=== PATIENT | female | born 1960 | race Caucasian/White ===

== ENCOUNTER 2023-07-06 17:43 | Emergency (ER) | payer BC ==
[~2023-07-06] VITALS: Ht 157.5 cm; Wt 132.0 kg
[~2023-07-06 17:43] MED LIST: ACET-2619 PO; ALBU0.0912 IH; AMIO200T62 GT; APIX2.5 GT; ASCO500T95 GT; ATRMDI IH; CHLO473S62 PO; CLOB15CR11 TP; DIPH25TA53 GT; DOCU-299 GT; INSU100S22 SC; INSU100S5 SUBQ; LACT-103 GT; LORA-476 GT; METO25TA GT; MONT5CTB27 GT; PANT40EC GT; PUL.25N INH; ZOS2.25PM IV; [UNRECOGNIZED DRUG - CODE]; [UNRECOGNIZED DRUG - CODE] TP
[2023-07-06 17:54] VITALS: BP 115/71; PULSE 126; RESP 16; TEMP 99.4; O2SAT 96
[2023-07-06 18:01] VITALS: PULSE 113; O2SAT 100
[2023-07-06 19:05] VITALS: PULSE 120; O2SAT 99
[2023-07-06] MEDS: DILTIAZEM 25 MG/5 ML VIAL IVP ONE (20:43)
[2023-07-06 21:30] VITALS: BP 99/48; PULSE 118; RESP 18; TEMP 99.4; O2SAT 98
== END 2023-07-06 21:30 ==
LOC: MED 17:43
DX: K94.23 Gastrostomy malfunction (principal); I48.91 Unspecified atrial fibrillation; E11.9 Type 2 diabetes mellitus without complications; I12.0 Hypertensive chronic kidney disease with stage 5 chronic kidney disease or end stage renal disease; N18.6 End stage renal disease; K21.9 Gastro-esophageal reflux disease without esophagitis; Z99.2 Dependence on renal dialysis; Z79.4 Long term (current) use of insulin; Z79.899 Other long term (current) drug therapy
CPT/HCPCS: 43762; 96374; 99284; 99291; J3490

== ENCOUNTER 2023-08-27 14:04 | Inpatient (IN) | payer BC ==
[2023-08-27] VITALS (7 sets, daily range): BP systolic 161–189; BP diastolic 65–83; PULSE 58–69; RESP 18–26; TEMP 97; O2SAT 96–100
[~2023-08-27] VITALS: Ht 154.9 cm; Wt 149.3 kg
[~2023-08-27 14:04] MED LIST changes: -LACT-103 GT; +LACT-191 GT; -LORA-476 GT; -ZOS2.25PM IV; +[UNRECOGNIZED DRUG - CODE] IV
[2023-08-27 14:22] LABS: BASOPHILS # (AUTO) 0.1 K/uL (0.00-0.22); BASOPHILS % (AUTO) 0.8 % (0.0-2.0); EOSINOPHILS # (AUTO) 0.2 K/uL (0-0.4); HEMATOCRIT 34.4 % (36-48); HEMOGLOBIN 11.5 g/dL (12.0-16.0); LYMPHOCYTES # (AUTO) 2.1 K/uL (2.5-16.5); MEAN CORPUSCULAR HEMOGLOBIN 31 pg (27-31); MEAN CORPUSCULAR HGB CONC 33 g/dL (33-37); MEAN CORPUSCULAR VOLUME 91.8 fL (80-94); MONOCYTES # (AUTO) 0.9 K/uL (0.8-1.0); MONOCYTES % (AUTO) 5.3 % (1.7-9.3); NEUTROPHILS # (AUTO) 14.4 K/uL (1.8-7.7); NEUTROPHILS % (AUTO) 80.9 % (42.2-75.2); PLATELET COUNT (AUTO) 349 K/uL (140-450); RED BLOOD CELL COUNT(AUTO) 3.75 MIL/uL (4.20-5.40); RED CELL DISTRIBUTION WIDTH 18.6 % (11.6-13.7); WHITE BLOOD COUNT (AUTO) 17.8 K/uL (4.8-10.8)
[2023-08-27 14:48] LABS: ALANINE AMINOTRANSFERASE 14 U/L (12-78); ALBUMIN 1.8 g/dL (3.4-5.0); ALKALINE PHOSPHATASE 406 U/L (50-136); ASPARTATE AMINOTRANSFERASE 23 U/L (15-37); BILIRUBIN,DIRECT 1.1 mg/dL (0.0-0.3); TOTAL BILIRUBIN 1.3 mg/dL (0.0-1.0); TOTAL PROTEIN, SERUM 7.9 g/dL (6.4-8.2)
[2023-08-27 14:55] LABS: ANION GAP 15.9 (8-16); CALCIUM 9.7 mg/dL (8.5-10.1); CARBON DIOXIDE 30.5 mmol/L (21-32); CREATININE 2.3 mg/dL (0.6-1.3); POTASSIUM 3.4 mmol/L (3.5-5.1)
[2023-08-27 17:20] LABS: LACTIC ACID 1.4 mmol/L (0.4-2.0)
[2023-08-27] MEDS ORDERED: NACL 0.9% 1,000 ML IV SCH (22:35)
[2023-08-27] MEDS ORDERED: hydrALAZINE 20 MG/ML VIAL IVP PRN (22:40)
[2023-08-27] MEDS ORDERED: ALBUTEROL SULFATE/IPRATROPIU 3 ML SOL IH PRN (22:45)
[2023-08-28] VITALS (12 sets, daily range): BP systolic 123–160; BP diastolic 51–73; PULSE 50–72; RESP 18–23; TEMP 96.5–97.2; O2SAT 97–100
[2023-08-28 05:45] LABS: BASOPHILS % (AUTO) 0.3 % (0.0-2.0); EOSINOPHILS # (AUTO) 0.2 K/uL (0-0.4); EOSINOPHILS % (AUTO) 1.1 % (0.0-4.0); HEMATOCRIT 32.4 % (36-48); HEMOGLOBIN 10.6 g/dL (12.0-16.0); LYMPHOCYTES # (AUTO) 1.8 K/uL (2.5-16.5); LYMPHOCYTES % (AUTO) 10.6 % (20.5-51.1); MEAN CORPUSCULAR HEMOGLOBIN 30 pg (27-31); MEAN CORPUSCULAR HGB CONC 33 g/dL (33-37); MEAN CORPUSCULAR VOLUME 91.9 fL (80-94); MONOCYTES % (AUTO) 5.9 % (1.7-9.3); NEUTROPHILS # (AUTO) 13.7 K/uL (1.8-7.7); NEUTROPHILS % (AUTO) 82.1 % (42.2-75.2); PLATELET COUNT (AUTO) 284 K/uL (140-450); RED BLOOD CELL COUNT(AUTO) 3.52 MIL/uL (4.20-5.40); RED CELL DISTRIBUTION WIDTH 18.5 % (11.6-13.7); WHITE BLOOD COUNT (AUTO) 16.7 K/uL (4.8-10.8)
[2023-08-28 06:15] LABS: ALBUMIN 1.5 g/dL (3.4-5.0); ANION GAP 17.4 (8-16); CALCIUM 9.7 mg/dL (8.5-10.1); CARBON DIOXIDE 29.2 mmol/L (21-32); CREATININE 2.6 mg/dL (0.6-1.3); POTASSIUM 3.6 mmol/L (3.5-5.1); TOTAL BILIRUBIN 1.3 mg/dL (0.0-1.0); TOTAL PROTEIN, SERUM 6.9 g/dL (6.4-8.2)
[2023-08-28] MEDS: PANTOPRAZOLE 40 MG INJ VIAL IVP SCH (09:19)
[2023-08-28] MEDS: ACETAMINOPHEN 325 MG TAB PO SCH (09:20)
[2023-08-28] MEDS: AMIODARONE 200 MG TAB GT SCH (09:20)
[2023-08-28] MEDS: METOPROLOL 25 MG TAB GT SCH (09:21)
[2023-08-28] MEDS: APIXABAN 2.5 MG TAB GT SCH (09:23)
[2023-08-28] MEDS: ASCORBIC ACID 500 MG TAB GT SCH (09:23)
[2023-08-28 10:19] LABS: APPEARANCE,URINE CLEAR (CLEAR); BILIRUBIN,URINE NEGATIVE (NEGATIVE); BLOOD, URINE 2+ (NEGATIVE); COLOR,URINE YELLOW (YELLOW); LEUKOCYTE ESTERASE ,URINE 2+ (NEGATIVE); NITRITE, URINE NEGATIVE (NEGATIVE); PH,URINE 8.5 (5.0-9.0); PROTEIN,URINE 2+ (NEGATIVE); UGLUCOSE TRACE (NEGATIVE); UROBILINOGEN,URINE 0.2 EU/dL (0.2 - 1)
[2023-08-28 10:40] LABS: BACTERIA,URINE 10-30 (MOD) /HPF (None Seen); SQUAMOUS EPITHELIAL CELL,UR 0-3 (FEW) /LPF (0-3 (FEW))
[2023-08-28] MEDS ORDERED: VANCOMYCIN PER PHARMACY MC PRN (11:15)
[2023-08-28] MEDS ORDERED: FOAM DRESSING TP PRN (12:15)
[2023-08-28] MEDS ORDERED: NYSTATIN POW 100 MU/GM 15 GM BTL TP PRN (12:15)
[2023-08-28] MEDS ORDERED: NON ADHERENT DRESSING TP PRN (12:15)
[2023-08-28] MEDS: NYSTATIN POW 100 MU/GM 15 GM BTL TP SCH (13:00)
[2023-08-28] MEDS: PIPERACILLIN/TAZOBACTAM 2.25 GM in DEXTROSE 5% 50 ML IV SCH (13:00)
[2023-08-28] MEDS: NON ADHERENT DRESSING TP SCH (13:00)
[2023-08-28] MEDS: FOAM DRESSING TP SCH (13:00)
[2023-08-28] MEDS: VANCOMYCIN 1.25GM PREMIX 250 ML IV SCH (21:36)
[2023-08-29] VITALS (10 sets, daily range): BP systolic 110–155; BP diastolic 57–79; PULSE 70–105; RESP 16–23; TEMP 96.9–97.5; O2SAT 96–100
[2023-08-29 05:27] LABS: BASOPHILS % (AUTO) 0.3 % (0.0-2.0); EOSINOPHILS # (AUTO) 0.2 K/uL (0-0.4); EOSINOPHILS % (AUTO) 1.9 % (0.0-4.0); HEMOGLOBIN 10.4 g/dL (12.0-16.0); LYMPHOCYTES # (AUTO) 1.4 K/uL (2.5-16.5); LYMPHOCYTES % (AUTO) 13.1 % (20.5-51.1); MEAN CORPUSCULAR HEMOGLOBIN 31 pg (27-31); MEAN CORPUSCULAR HGB CONC 34 g/dL (33-37); MEAN CORPUSCULAR VOLUME 91.4 fL (80-94); MONOCYTES # (AUTO) 0.7 K/uL (0.8-1.0); MONOCYTES % (AUTO) 6.3 % (1.7-9.3); NEUTROPHILS # (AUTO) 8.6 K/uL (1.8-7.7); NEUTROPHILS % (AUTO) 78.4 % (42.2-75.2); PLATELET COUNT (AUTO) 297 K/uL (140-450); RED BLOOD CELL COUNT(AUTO) 3.39 MIL/uL (4.20-5.40); RED CELL DISTRIBUTION WIDTH 18.9 % (11.6-13.7)
[2023-08-29 05:45] LABS: ALBUMIN 1.5 g/dL (3.4-5.0); ANION GAP 17.9 (8-16); CALCIUM 9.8 mg/dL (8.5-10.1); CARBON DIOXIDE 26.9 mmol/L (21-32); CREATININE 2.3 mg/dL (0.6-1.3); POTASSIUM 3.8 mmol/L (3.5-5.1); TOTAL BILIRUBIN 1.2 mg/dL (0.0-1.0); TOTAL PROTEIN, SERUM 6.8 g/dL (6.4-8.2)
[2023-08-29] MEDS ORDERED: diphenhydrAMINE 12.5 MG/5 ML UDC GT PRN (17:00)
[2023-08-30] VITALS (13 sets, daily range): BP systolic 105–140; BP diastolic 51–82; PULSE 68–85; RESP 16–27; TEMP 97.3–97.9; O2SAT 95–99
[2023-08-30 05:40] LABS: ALBUMIN 1.5 g/dL (3.4-5.0); BASOPHILS # (AUTO) 0.1 K/uL (0.00-0.22); BASOPHILS % (AUTO) 0.4 % (0.0-2.0); CARBON DIOXIDE 26.8 mmol/L (21-32); CREATININE 2.9 mg/dL (0.6-1.3); EOSINOPHILS # (AUTO) 0.3 K/uL (0-0.4); EOSINOPHILS % (AUTO) 2.1 % (0.0-4.0); HEMATOCRIT 30.9 % (36-48); HEMOGLOBIN 10.2 g/dL (12.0-16.0); LYMPHOCYTES # (AUTO) 1.7 K/uL (2.5-16.5); LYMPHOCYTES % (AUTO) 13.7 % (20.5-51.1); MEAN CORPUSCULAR HEMOGLOBIN 30 pg (27-31); MEAN CORPUSCULAR HGB CONC 33 g/dL (33-37); MEAN CORPUSCULAR VOLUME 91.2 fL (80-94); MONOCYTES # (AUTO) 0.8 K/uL (0.8-1.0); NEUTROPHILS # (AUTO) 9.3 K/uL (1.8-7.7); NEUTROPHILS % (AUTO) 76.8 % (42.2-75.2); PLATELET COUNT (AUTO) 289 K/uL (140-450); POTASSIUM 3.8 mmol/L (3.5-5.1); RED BLOOD CELL COUNT(AUTO) 3.39 MIL/uL (4.20-5.40); RED CELL DISTRIBUTION WIDTH 18.6 % (11.6-13.7); TOTAL BILIRUBIN 1.2 mg/dL (0.0-1.0); TOTAL PROTEIN, SERUM 6.7 g/dL (6.4-8.2); WHITE BLOOD COUNT (AUTO) 12.1 K/uL (4.8-10.8)
[2023-08-31] VITALS (11 sets, daily range): BP systolic 149–157; BP diastolic 70–74; PULSE 70–101; RESP 19–25; TEMP 97–98; O2SAT 95–99
[2023-08-31 05:29] LABS: BASOPHILS % (AUTO) 0.4 % (0.0-2.0); EOSINOPHILS # (AUTO) 0.3 K/uL (0-0.4); EOSINOPHILS % (AUTO) 2.4 % (0.0-4.0); HEMATOCRIT 30.7 % (36-48); HEMOGLOBIN 10.5 g/dL (12.0-16.0); LYMPHOCYTES # (AUTO) 1.5 K/uL (2.5-16.5); LYMPHOCYTES % (AUTO) 14.4 % (20.5-51.1); MEAN CORPUSCULAR HEMOGLOBIN 31 pg (27-31); MEAN CORPUSCULAR HGB CONC 34 g/dL (33-37); MEAN CORPUSCULAR VOLUME 90.3 fL (80-94); MONOCYTES # (AUTO) 0.7 K/uL (0.8-1.0); MONOCYTES % (AUTO) 6.5 % (1.7-9.3); NEUTROPHILS # (AUTO) 8.1 K/uL (1.8-7.7); NEUTROPHILS % (AUTO) 76.3 % (42.2-75.2); PLATELET COUNT (AUTO) 272 K/uL (140-450); RED CELL DISTRIBUTION WIDTH 18.5 % (11.6-13.7); WHITE BLOOD COUNT (AUTO) 10.6 K/uL (4.8-10.8)
[2023-08-31 05:47] LABS: ALBUMIN 1.5 g/dL (3.4-5.0); ANION GAP 16.4 (8-16); CARBON DIOXIDE 28.6 mmol/L (21-32); CREATININE 3.3 mg/dL (0.6-1.3); TOTAL BILIRUBIN 2.2 mg/dL (0.0-1.0); TOTAL PROTEIN, SERUM 6.9 g/dL (6.4-8.2)
[2023-08-31] MEDS ORDERED: DEXTROSE 50% 50 ML SYR IVP PRN (08:25)
[2023-08-31] MEDS: BLOOD GLUCOSE MONITORING 1 DEV DEV FS SCH (11:45)
[2023-08-31] MEDS: ONDANSETRON 4 MG/2 ML VIAL IVP PRN (15:56)
[2023-09-01] VITALS (9 sets, daily range): BP systolic 145–147; BP diastolic 62–70; PULSE 59–80; RESP 19–23; TEMP 97.3–98.2; O2SAT 90–100
[2023-09-01 06:57] LABS: ALBUMIN 1.5 g/dL (3.4-5.0); CALCIUM 9.9 mg/dL (8.5-10.1); CARBON DIOXIDE 26.3 mmol/L (21-32); POTASSIUM 4.3 mmol/L (3.5-5.1); TOTAL BILIRUBIN 3.2 mg/dL (0.0-1.0); TOTAL PROTEIN, SERUM 6.7 g/dL (6.4-8.2)
[2023-09-01 08:01] LABS: BASOPHILS % (AUTO) 0.3 % (0.0-2.0); EOSINOPHILS # (AUTO) 0.3 K/uL (0-0.4); EOSINOPHILS % (AUTO) 2.1 % (0.0-4.0); HEMATOCRIT 30.2 % (36-48); HEMOGLOBIN 9.8 g/dL (12.0-16.0); LYMPHOCYTES # (AUTO) 1.4 K/uL (2.5-16.5); LYMPHOCYTES % (AUTO) 11.4 % (20.5-51.1); MEAN CORPUSCULAR HEMOGLOBIN 30 pg (27-31); MEAN CORPUSCULAR HGB CONC 32 g/dL (33-37); MEAN CORPUSCULAR VOLUME 93.2 fL (80-94); MONOCYTES # (AUTO) 0.9 K/uL (0.8-1.0); MONOCYTES % (AUTO) 7.6 % (1.7-9.3); NEUTROPHILS # (AUTO) 9.6 K/uL (1.8-7.7); NEUTROPHILS % (AUTO) 78.6 % (42.2-75.2); PLATELET COUNT (AUTO) 257 K/uL (140-450); RED BLOOD CELL COUNT(AUTO) 3.24 MIL/uL (4.20-5.40); RED CELL DISTRIBUTION WIDTH 18.9 % (11.6-13.7); WHITE BLOOD COUNT (AUTO) 12.2 K/uL (4.8-10.8)
[2023-09-01] MEDS: INSULIN LISPRO SLIDING SCALE 100 UNITS/ML VIAL SUBQ PRN (12:18)
[2023-09-01] MEDS: ALTEPLASE 2 MG VIAL MC ONE (21:09)
[2023-09-01] MEDS: LINEZOLID 600MG PREMIX 300 ML IV SCH (21:56)
[2023-09-02] VITALS (14 sets, daily range): BP systolic 107–140; BP diastolic 59–68; PULSE 59–105; RESP 20–21; TEMP 97.6–98.5; O2SAT 97–100
[2023-09-02] MEDS: Z-GUARD PASTE TP ONE ×2 (00:44)
[2023-09-02 05:39] LABS: LYMPHOCYTES # (AUTO) 1.5 K/uL (2.5-16.5); MEAN CORPUSCULAR VOLUME 92.6 fL (80-94); MONOCYTES # (AUTO) 0.8 K/uL (0.8-1.0)
[2023-09-02 05:50] LABS: BASOPHILS % (AUTO) 0.4 % (0.0-2.0); EOSINOPHILS # (AUTO) 0.3 K/uL (0-0.4); EOSINOPHILS % (AUTO) 3.2 % (0.0-4.0); HEMATOCRIT 30.3 % (36-48); LYMPHOCYTES % (AUTO) 14.3 % (20.5-51.1); MEAN CORPUSCULAR HEMOGLOBIN 31 pg (27-31); MEAN CORPUSCULAR HGB CONC 33 g/dL (33-37); MONOCYTES % (AUTO) 7.3 % (1.7-9.3); NEUTROPHILS % (AUTO) 74.8 % (42.2-75.2); PLATELET COUNT (AUTO) 257 K/uL (140-450); RED BLOOD CELL COUNT(AUTO) 3.27 MIL/uL (4.20-5.40); WHITE BLOOD COUNT (AUTO) 10.7 K/uL (4.8-10.8)
[2023-09-02 06:25] LABS: ALBUMIN 1.4 g/dL (3.4-5.0); ANION GAP 19.4 (8-16); CALCIUM 9.8 mg/dL (8.5-10.1); CARBON DIOXIDE 24.9 mmol/L (21-32); CREATININE 3.4 mg/dL (0.6-1.3); POTASSIUM 4.3 mmol/L (3.5-5.1); TOTAL BILIRUBIN 2.8 mg/dL (0.0-1.0); TOTAL PROTEIN, SERUM 6.5 g/dL (6.4-8.2)
[2023-09-02] MEDS: PIPERACILLIN/TAZOBACTAM 2.25 GM in DEXTROSE 5% 50 ML IV SCH (13:01)
[2023-09-02] MEDS ORDERED: NON ADHERENT DRESSING TP PRN (16:40)
[2023-09-02] MEDS ORDERED: FOAM DRESSING TP PRN (16:40)
[2023-09-03] VITALS (10 sets, daily range): BP systolic 112–120; BP diastolic 59–72; PULSE 56–94; RESP 16–20; TEMP 98–98.2; O2SAT 98–100
[2023-09-03 05:47] LABS: BASOPHILS % (AUTO) 0.4 % (0.0-2.0); EOSINOPHILS # (AUTO) 0.4 K/uL (0-0.4); EOSINOPHILS % (AUTO) 3.6 % (0.0-4.0); HEMATOCRIT 27.9 % (36-48); HEMOGLOBIN 9.2 g/dL (12.0-16.0); LYMPHOCYTES # (AUTO) 1.5 K/uL (2.5-16.5); LYMPHOCYTES % (AUTO) 12.1 % (20.5-51.1); MEAN CORPUSCULAR HEMOGLOBIN 31 pg (27-31); MEAN CORPUSCULAR HGB CONC 33 g/dL (33-37); MEAN CORPUSCULAR VOLUME 92.5 fL (80-94); MONOCYTES # (AUTO) 0.9 K/uL (0.8-1.0); MONOCYTES % (AUTO) 7.3 % (1.7-9.3); NEUTROPHILS # (AUTO) 9.3 K/uL (1.8-7.7); NEUTROPHILS % (AUTO) 76.6 % (42.2-75.2); PLATELET COUNT (AUTO) 289 K/uL (140-450); RED BLOOD CELL COUNT(AUTO) 3.02 MIL/uL (4.20-5.40); RED CELL DISTRIBUTION WIDTH 18.4 % (11.6-13.7); WHITE BLOOD COUNT (AUTO) 12.2 K/uL (4.8-10.8)
[2023-09-03 06:11] LABS: ALBUMIN 1.3 g/dL (3.4-5.0); ANION GAP 14.1 (8-16); CALCIUM 9.4 mg/dL (8.5-10.1); CARBON DIOXIDE 29.9 mmol/L (21-32); TOTAL PROTEIN, SERUM 6.2 g/dL (6.4-8.2)
[2023-09-03] MEDS: NON ADHERENT DRESSING TP SCH (13:15)
[2023-09-05] MEDS ORDERED: FOAM DRESSING TP SCH (09:00)
== END 2023-09-03 18:35 | DRG 720 ==
LOC: MED 14:04 → MTU 19:41
PROVIDERS: ADMIT Student in an Organized Health Care Education/Training Program; ATTEND Student in an Organized Health Care Education/Training Program
PROC: 5A1955Z Respiratory Ventilation, Greater than 96 Consecutive Hours (ICD-10-PCS; principal; 2023-08-27)
PROC: 5A1D70Z Performance of Urinary Filtration, Intermittent, Less than 6 Hours Per Day (ICD-10-PCS; 2023-08-28)
PROC: 5A1D70Z Performance of Urinary Filtration, Intermittent, Less than 6 Hours Per Day (ICD-10-PCS; 2023-08-31)
PROC: 5A1D70Z Performance of Urinary Filtration, Intermittent, Less than 6 Hours Per Day (ICD-10-PCS; 2023-09-02)
PROC: 5A1D70Z Performance of Urinary Filtration, Intermittent, Less than 6 Hours Per Day (ICD-10-PCS; 2023-09-03)
DX: A41.9 Sepsis, unspecified organism (principal); J96.21 Acute and chronic respiratory failure with hypoxia; E43 Unspecified severe protein-calorie malnutrition; J18.9 Pneumonia, unspecified organism; G93.40 Encephalopathy, unspecified; D63.8 Anemia in other chronic diseases classified elsewhere; I12.0 Hypertensive chronic kidney disease with stage 5 chronic kidney disease or end stage renal disease; I42.7 Cardiomyopathy due to drug and external agent; J90 Pleural effusion, not elsewhere classified; N18.6 End stage renal disease; E11.22 Type 2 diabetes mellitus with diabetic chronic kidney disease; I48.91 Unspecified atrial fibrillation; E66.01 Morbid (severe) obesity due to excess calories; T43.655A Adverse effect of methamphetamines, initial encounter; N39.0 Urinary tract infection, site not specified; R74.01 Elevation of levels of liver transaminase levels; Z68.44 Body mass index [BMI] 60.0-69.9, adult; Z93.0 Tracheostomy status; Z99.11 Dependence on respirator [ventilator] status; Z99.2 Dependence on renal dialysis; Z93.1 Gastrostomy status; Y92.89 Other specified places as the place of occurrence of the external cause
CPT/HCPCS: 36415; 70450; 71045; 76604; 76700; 80048; 80053; 80076; 80202; 81001; 82948; 83605; 84484; 85025; 87040; 87081; 87086; 87186; 90935; 93005; 94002; 94003; 94640; 99285; C9113; J1815; J2020; J2405; J2543; J2997; J3372; J7060; Q0092

== ENCOUNTER 2023-11-25 19:15 | Inpatient (IN) | payer BC ==
[~2023-11-25] VITALS: Ht 162.6 cm; Wt 149.7 kg
[~2023-11-25 19:15] MED LIST changes: -[UNRECOGNIZED DRUG - CODE] IV
[2023-11-25 19:29] VITALS: BP 133/71; PULSE 136; RESP 18; TEMP 99.1; O2SAT 98
[2023-11-25 19:31] VITALS: PULSE 128; PULSE 137; PULSE 140; RESP 34; O2SAT 95
[2023-11-25 20:02] LABS: EOSINOPHILS % (AUTO) 0.1 % (0.0-4.0); HEMATOCRIT 37.2 % (36-48); HEMOGLOBIN 12.1 g/dL (12.0-16.0); LYMPHOCYTES # (AUTO) 0.4 K/uL (2.5-16.5); MEAN CORPUSCULAR HEMOGLOBIN 29 pg (27-31); MEAN CORPUSCULAR HGB CONC 33 g/dL (33-37); MEAN CORPUSCULAR VOLUME 89.3 fL (80-94); MONOCYTES # (AUTO) 0.9 K/uL (0.8-1.0); MONOCYTES % (AUTO) 4.2 % (1.7-9.3); NEUTROPHILS # (AUTO) 20.7 K/uL (1.8-7.7); NEUTROPHILS % (AUTO) 93.7 % (42.2-75.2); PLATELET COUNT (AUTO) 473 K/uL (140-450); RED BLOOD CELL COUNT(AUTO) 4.17 MIL/uL (4.20-5.40); RED CELL DISTRIBUTION WIDTH 16.2 % (11.6-13.7); WHITE BLOOD COUNT (AUTO) 22.1 K/uL (4.8-10.8)
[2023-11-25 20:17] LABS: ANION GAP 16.4 (8-16); CALCIUM 9.7 mg/dL (8.5-10.1); CREATININE 2.3 mg/dL (0.6-1.3); POTASSIUM 3.4 mmol/L (3.5-5.1)
[2023-11-25 20:21] LABS: INR 1.15 (0.8-1.2); PARTIAL THROMBOPLASTIN TIME 31.8 secs (22-35.6)
[2023-11-25 20:24] LABS: ALANINE AMINOTRANSFERASE 47 U/L (12-78); ALBUMIN 2.1 g/dL (3.4-5.0); ALKALINE PHOSPHATASE 703 U/L (50-136); ASPARTATE AMINOTRANSFERASE 65 U/L (15-37); BILIRUBIN,DIRECT 1.1 mg/dL (0.0-0.3); TOTAL BILIRUBIN 1.2 mg/dL (0.0-1.0); TOTAL PROTEIN, SERUM 9.4 g/dL (6.4-8.2)
[2023-11-25] MEDS: ACETAMINOPHEN 100 ML IV STA (20:28)
[2023-11-25] MEDS ORDERED: CEFEPIME 2,000 MG VIAL IV ONE (20:29)
[2023-11-25] MEDS: CEFEPIME 2,000 MG in DEXTROSE 5% 100 ML IV ONE (20:40)
[2023-11-25 20:43] LABS: LACTIC ACID 2.9 mmol/L (0.4-2.0)
[2023-11-25 20:49] VITALS: O2SAT 99
[2023-11-25] MEDS ORDERED: VANCOMYCIN 1,000 MG VIAL ONE (20:52)
[2023-11-25] MEDS: VANCOMYCIN 1,000 MG in DEXTROSE 5% 250 ML IV ONE (21:00)
[2023-11-25 23:38] VITALS: PULSE 112; O2SAT 95
[2023-11-26] VITALS (13 sets, daily range): BP systolic 124; BP diastolic 62; PULSE 68–99; RESP 19–22; TEMP 97.8; O2SAT 91–100
[2023-11-26 00:45] LABS: APPEARANCE,URINE CLEAR (CLEAR); BILIRUBIN,URINE NEGATIVE (NEGATIVE); BLOOD, URINE 2+ (NEGATIVE); COLOR,URINE YELLOW (YELLOW); LEUKOCYTE ESTERASE ,URINE 3+ (NEGATIVE); NITRITE, URINE NEGATIVE (NEGATIVE); PH,URINE 6.5 (5.0-9.0); PROTEIN,URINE 3+ (NEGATIVE); UGLUCOSE NEGATIVE (NEGATIVE); UROBILINOGEN,URINE 0.2 EU/dL (0.2 - 1)
[2023-11-26] MEDS ORDERED: ZOLPIDEM 5 MG TAB PO PRN (01:00)
[2023-11-26 01:05] LABS: BACTERIA,URINE 3+ /HPF (None Seen); MUCUS,URINE 2+ /LPF (None Seen); RBC,URINE 11-20 (MOD) /HPF (0-5); WBC,URINE TOO MANY TO COUNT /HPF (0-5)
[2023-11-26 07:30] LABS: HEMOGLOBIN 11.8 g/dL (12.0-16.0); MEAN CORPUSCULAR HEMOGLOBIN 30 pg (27-31); MEAN CORPUSCULAR HGB CONC 33 g/dL (33-37); MEAN CORPUSCULAR VOLUME 89.8 fL (80-94); PLATELET COUNT (AUTO) 451 K/uL (140-450); RED BLOOD CELL COUNT(AUTO) 4.01 MIL/uL (4.20-5.40); RED CELL DISTRIBUTION WIDTH 16.1 % (11.6-13.7)
[2023-11-26 07:59] LABS: ALBUMIN 1.9 g/dL (3.4-5.0); CALCIUM 10.1 mg/dL (8.5-10.1); CREATININE 2.5 mg/dL (0.6-1.3); POTASSIUM 3.6 mmol/L (3.5-5.1); TOTAL BILIRUBIN 1.3 mg/dL (0.0-1.0); TOTAL PROTEIN, SERUM 8.9 g/dL (6.4-8.2)
[2023-11-26 08:05] LABS: ANION GAP 15.7 (8-16); CARBON DIOXIDE 27.9 mmol/L (21-32)
[2023-11-26 08:29] LABS: BASOPHILS % (MANUAL) 0 % (0-2); BLASTS, MANUAL % 0 % (0-0); EOSINOPHILS % (MANUAL) 0 % (0-4); LYMPHOCYTES % (MANUAL) 12 % (20-46); METAMYELOCYTES % 0 % (0-0); MONOCYTES % (MANUAL) 3 % (5-12); MYELOCYTES % 0 % (0-0); OTHER CELLS,MANUAL % 0 (0-0); PLASMA CELLS 0; PLATELET ESTIMATE INCREASED; PROMYELOCYTES % 0 % (0-0); SMUDGE CELLS 0
[2023-11-26] MEDS: PANTOPRAZOLE 40 MG INJ VIAL IVP SCH (09:38)
[2023-11-26] MEDS: NACL 0.9% 1,000 ML IV SCH (10:50)
[2023-11-26] MEDS ORDERED: VANCOMYCIN PER PHARMACY MC PRN (10:50)
[2023-11-26] MEDS ORDERED: DEXTROSE 50% 50 ML SYR IVP PRN (11:50)
[2023-11-26] MEDS ORDERED: INSULIN REGULAR, HUMAN 100 UNIT/ML VIAL SUBQ SCH (12:00)
[2023-11-26] MEDS: BLOOD GLUCOSE MONITORING 1 DEV DEV FS SCH (12:00)
[2023-11-26] MEDS: AMIODARONE 200 MG TAB GT SCH (12:57)
[2023-11-26] MEDS: MEROPENEM 1,000 MG in NACL 0.9% 50 ML IV SCH (13:00)
[2023-11-26] MEDS ORDERED: LANTUS SUBQ (17:50)
[2023-11-26] MEDS ORDERED: SLIDE SUBQ (18:20)
[2023-11-26] MEDS: BUDESONIDE 0.25 MG/2 ML NEBU INH SCH (20:05)
[2023-11-26] MEDS: diphenhydrAMINE 12.5 MG/5 ML UDC GT SCH (21:30)
[2023-11-26] MEDS: METOPROLOL 25 MG TAB GT SCH (21:32)
[2023-11-26] MEDS: APIXABAN 2.5 MG TAB GT SCH (21:32)
[2023-11-26] MEDS: INSULIN LISPRO SLIDING SCALE 100 UNITS/ML VIAL SUBQ PRN (23:58)
[2023-11-27] VITALS (13 sets, daily range): BP systolic 115–139; BP diastolic 40–54; PULSE 67–115; RESP 18–33; TEMP 97.5–97.9; O2SAT 96–99
[2023-11-27 06:56] LABS: LACTIC ACID 1.1 mmol/L (0.4-2.0)
[2023-11-27 07:11] LABS: ALBUMIN 1.7 g/dL (3.4-5.0); ANION GAP 15.2 (8-16); CALCIUM 9.5 mg/dL (8.5-10.1); CARBON DIOXIDE 26.6 mmol/L (21-32); CREATININE 3.1 mg/dL (0.6-1.3); MAGNESIUM 2.2 mg/dL (1.8-2.4); PHOSPHORUS 3.6 mg/dL (2.5-4.9); POTASSIUM 3.8 mmol/L (3.5-5.1); TOTAL BILIRUBIN 1.3 mg/dL (0.0-1.0); TOTAL PROTEIN, SERUM 7.8 g/dL (6.4-8.2)
[2023-11-27 07:40] LABS: BASOPHILS # (AUTO) 0.1 K/uL (0.00-0.22); BASOPHILS % (AUTO) 0.3 % (0.0-2.0); EOSINOPHILS # (AUTO) 0.3 K/uL (0-0.4); EOSINOPHILS % (AUTO) 1.6 % (0.0-4.0); HEMATOCRIT 30.6 % (36-48); LYMPHOCYTES # (AUTO) 1.6 K/uL (2.5-16.5); LYMPHOCYTES % (AUTO) 8.8 % (20.5-51.1); MEAN CORPUSCULAR HEMOGLOBIN 29 pg (27-31); MEAN CORPUSCULAR HGB CONC 33 g/dL (33-37); MEAN CORPUSCULAR VOLUME 89.3 fL (80-94); MONOCYTES # (AUTO) 1.2 K/uL (0.8-1.0); MONOCYTES % (AUTO) 6.2 % (1.7-9.3); NEUTROPHILS # (AUTO) 15.5 K/uL (1.8-7.7); NEUTROPHILS % (AUTO) 83.1 % (42.2-75.2); PLATELET COUNT (AUTO) 426 K/uL (140-450); RED BLOOD CELL COUNT(AUTO) 3.43 MIL/uL (4.20-5.40); RED CELL DISTRIBUTION WIDTH 16.4 % (11.6-13.7); WHITE BLOOD COUNT (AUTO) 18.6 K/uL (4.8-10.8)
[2023-11-27] MEDS ORDERED: PANTOPRAZOLE 40 MG TABEC PO SCH (09:00)
[2023-11-27] MEDS: DOCUSATE 100 MG/10 ML UDC PO SCH (09:12)
[2023-11-27] MEDS: ASCORBIC ACID 500 MG TAB GT SCH (09:12)
[2023-11-27] MEDS: MORPHINE SULFATE 2 MG/ML SYR IVP PRN (09:50)
[2023-11-27] MEDS ORDERED: HYDROCOLLOID DRESSING TP PRN (12:55)
[2023-11-27] MEDS ORDERED: FOAM DRESSING TP PRN (12:55)
[2023-11-27] MEDS ORDERED: NYSTATIN POW 100 MU/GM 15 GM BTL TP PRN (12:55)
[2023-11-27] MEDS ORDERED: NON ADHERENT DRESSING TP PRN (12:55)
[2023-11-27] MEDS: FOAM DRESSING TP SCH (13:36)
[2023-11-27] MEDS: NON ADHERENT DRESSING TP SCH (13:38)
[2023-11-27] MEDS: NYSTATIN POW 100 MU/GM 15 GM BTL TP SCH (13:40)
[2023-11-27] MEDS: GABAPENTIN 100 MG CAP PO SCH (17:46)
[2023-11-27] MEDS: VANCOMYCIN 1,000 MG in DEXTROSE 5% 250 ML IV SCH (21:00)
[2023-11-28] VITALS (13 sets, daily range): BP systolic 92–131; BP diastolic 43–59; PULSE 74–118; RESP 18–29; TEMP 96.9–97; O2SAT 95–98
[2023-11-28 06:49] LABS: BASOPHILS % (AUTO) 0.4 % (0.0-2.0); EOSINOPHILS # (AUTO) 0.4 K/uL (0-0.4); EOSINOPHILS % (AUTO) 3.3 % (0.0-4.0); HEMATOCRIT 31.8 % (36-48); HEMOGLOBIN 10.4 g/dL (12.0-16.0); LYMPHOCYTES # (AUTO) 1.8 K/uL (2.5-16.5); LYMPHOCYTES % (AUTO) 14.7 % (20.5-51.1); MEAN CORPUSCULAR HEMOGLOBIN 30 pg (27-31); MEAN CORPUSCULAR HGB CONC 33 g/dL (33-37); MONOCYTES % (AUTO) 8.4 % (1.7-9.3); NEUTROPHILS % (AUTO) 73.2 % (42.2-75.2); PLATELET COUNT (AUTO) 410 K/uL (140-450); RED BLOOD CELL COUNT(AUTO) 3.53 MIL/uL (4.20-5.40); RED CELL DISTRIBUTION WIDTH 16.3 % (11.6-13.7); WHITE BLOOD COUNT (AUTO) 12.4 K/uL (4.8-10.8)
[2023-11-28 07:41] LABS: ALBUMIN 1.6 g/dL (3.4-5.0); CALCIUM 9.5 mg/dL (8.5-10.1); CARBON DIOXIDE 25.2 mmol/L (21-32); CREATININE 2.5 mg/dL (0.6-1.3); MAGNESIUM 2.1 mg/dL (1.8-2.4); PHOSPHORUS 2.5 mg/dL (2.5-4.9); TOTAL PROTEIN, SERUM 7.8 g/dL (6.4-8.2)
[2023-11-28 08:00] LABS: ANION GAP 15.6 (8-16); POTASSIUM 3.8 mmol/L (3.5-5.1)
[2023-11-28] MEDS: GABAPENTIN 300 MG CAP PO SCH (12:10)
[2023-11-28] MEDS: LINEZOLID 600 MG TAB GT SCH (21:05)
[2023-11-29] VITALS (12 sets, daily range): BP systolic 113–145; BP diastolic 30–68; PULSE 67–133; RESP 16–29; TEMP 96–97.8; O2SAT 93–100
[2023-11-29 07:14] LABS: BASOPHILS % (AUTO) 0.4 % (0.0-2.0); EOSINOPHILS # (AUTO) 0.5 K/uL (0-0.4); EOSINOPHILS % (AUTO) 3.6 % (0.0-4.0); HEMATOCRIT 30.4 % (36-48); HEMOGLOBIN 9.7 g/dL (12.0-16.0); LYMPHOCYTES # (AUTO) 2.2 K/uL (2.5-16.5); LYMPHOCYTES % (AUTO) 16.9 % (20.5-51.1); MEAN CORPUSCULAR HEMOGLOBIN 29 pg (27-31); MEAN CORPUSCULAR HGB CONC 32 g/dL (33-37); MEAN CORPUSCULAR VOLUME 91.3 fL (80-94); MONOCYTES # (AUTO) 0.9 K/uL (0.8-1.0); MONOCYTES % (AUTO) 7.3 % (1.7-9.3); NEUTROPHILS # (AUTO) 9.3 K/uL (1.8-7.7); NEUTROPHILS % (AUTO) 71.8 % (42.2-75.2); PLATELET COUNT (AUTO) 372 K/uL (140-450); RED BLOOD CELL COUNT(AUTO) 3.34 MIL/uL (4.20-5.40); RED CELL DISTRIBUTION WIDTH 16.6 % (11.6-13.7)
[2023-11-29 07:19] LABS: ALBUMIN 1.6 g/dL (3.4-5.0); ANION GAP 15.7 (8-16); CALCIUM 9.7 mg/dL (8.5-10.1); CARBON DIOXIDE 23.5 mmol/L (21-32); CREATININE 3.1 mg/dL (0.6-1.3); MAGNESIUM 2.2 mg/dL (1.8-2.4); PHOSPHORUS 3.5 mg/dL (2.5-4.9); POTASSIUM 4.2 mmol/L (3.5-5.1); TOTAL BILIRUBIN 0.8 mg/dL (0.0-1.0); TOTAL PROTEIN, SERUM 7.5 g/dL (6.4-8.2)
[2023-11-29] MEDS: MUPIROCIN CA NASAL 2% 1GM TUBE NS SCH (09:24)
[2023-11-30] VITALS (18 sets, daily range): BP systolic 112–150; BP diastolic 35–65; PULSE 60–110; RESP 16–26; TEMP 96.3–97.7; O2SAT 98–100
[2023-11-30] MEDS: HYDROCOLLOID DRESSING TP SCH (13:13)
[2023-12-01] VITALS (14 sets, daily range): BP systolic 109–136; BP diastolic 48–72; PULSE 72–113; RESP 18–22; TEMP 96.7–97.3; O2SAT 97–100
[2023-12-01 07:03] LABS: BASOPHILS % (AUTO) 0.5 % (0.0-2.0); EOSINOPHILS # (AUTO) 0.6 K/uL (0-0.4); EOSINOPHILS % (AUTO) 6.5 % (0.0-4.0); HEMATOCRIT 30.6 % (36-48); LYMPHOCYTES % (AUTO) 21.7 % (20.5-51.1); MEAN CORPUSCULAR HEMOGLOBIN 30 pg (27-31); MEAN CORPUSCULAR HGB CONC 33 g/dL (33-37); MEAN CORPUSCULAR VOLUME 91.1 fL (80-94); MONOCYTES # (AUTO) 0.8 K/uL (0.8-1.0); MONOCYTES % (AUTO) 8.2 % (1.7-9.3); NEUTROPHILS # (AUTO) 5.8 K/uL (1.8-7.7); NEUTROPHILS % (AUTO) 63.1 % (42.2-75.2); PLATELET COUNT (AUTO) 377 K/uL (140-450); RED BLOOD CELL COUNT(AUTO) 3.36 MIL/uL (4.20-5.40); WHITE BLOOD COUNT (AUTO) 9.2 K/uL (4.8-10.8)
[2023-12-01 07:48] LABS: ANION GAP 16.6 (8-16); CALCIUM 9.2 mg/dL (8.5-10.1); CARBON DIOXIDE 22.5 mmol/L (21-32); CREATININE 2.7 mg/dL (0.6-1.3); POTASSIUM 4.1 mmol/L (3.5-5.1)
[2023-12-01] MEDS ORDERED: MERO1VIA15 IV (16:09)
[2023-12-01] MEDS ORDERED: LINE600T10 GT (16:09)
[2023-12-01] MEDS ORDERED: HUMSLIDE SUBQ (16:09)
[2023-12-01] MEDS ORDERED: GABA300C PO (16:09)
[2023-12-01] MEDS ORDERED: MYCPWD TP (16:09)
[2023-12-01] MEDS ORDERED: MUPI2CRE22 NS (16:09)
[2023-12-02] VITALS (11 sets, daily range): BP systolic 101–124; BP diastolic 45–59; PULSE 63–93; RESP 18–21; TEMP 96.9–97.5; O2SAT 99–100
== END 2023-12-02 19:20 | DRG 720 ==
LOC: MED 19:15 → MTU 23:41
PROVIDERS: ADMIT Student in an Organized Health Care Education/Training Program; ATTEND Student in an Organized Health Care Education/Training Program
PROC: 5A1955Z Respiratory Ventilation, Greater than 96 Consecutive Hours (ICD-10-PCS; principal; 2023-11-25)
PROC: 5A1D70Z Performance of Urinary Filtration, Intermittent, Less than 6 Hours Per Day (ICD-10-PCS; 2023-11-27)
PROC: 5A1D70Z Performance of Urinary Filtration, Intermittent, Less than 6 Hours Per Day (ICD-10-PCS; 2023-11-28)
PROC: 5A1D70Z Performance of Urinary Filtration, Intermittent, Less than 6 Hours Per Day (ICD-10-PCS; 2023-11-30)
PROC: 5A1D70Z Performance of Urinary Filtration, Intermittent, Less than 6 Hours Per Day (ICD-10-PCS; 2023-12-02)
DX: A41.81 Sepsis due to Enterococcus (principal); J18.9 Pneumonia, unspecified organism; I13.2 Hypertensive heart and chronic kidney disease with heart failure and with stage 5 chronic kidney disease, or end stage renal disease; E43 Unspecified severe protein-calorie malnutrition; J96.10 Chronic respiratory failure, unspecified whether with hypoxia or hypercapnia; N18.6 End stage renal disease; I48.91 Unspecified atrial fibrillation; E66.01 Morbid (severe) obesity due to excess calories; E11.51 Type 2 diabetes mellitus with diabetic peripheral angiopathy without gangrene; F41.9 Anxiety disorder, unspecified; D63.1 Anemia in chronic kidney disease; K94.23 Gastrostomy malfunction; R13.12 Dysphagia, oropharyngeal phase; E87.1 Hypo-osmolality and hyponatremia; I50.9 Heart failure, unspecified; E11.22 Type 2 diabetes mellitus with diabetic chronic kidney disease; N39.0 Urinary tract infection, site not specified; Z16.21 Resistance to vancomycin; E03.9 Hypothyroidism, unspecified; Z99.2 Dependence on renal dialysis; Z68.43 Body mass index [BMI] 50.0-59.9, adult; Z79.4 Long term (current) use of insulin
CPT/HCPCS: 36415; 71045; 80048; 80053; 80076; 80202; 81001; 82948; 83605; 83735; 83880; 84100; 84484; 85025; 85610; 85730; 87040; 87070; 87081; 87086; 87186; 87205; 89220; 93005; 93308; 93925; 93970; 94002; 94003; 94640; 96365; 96375; 99285; J0692; J1815; J2185; J2270; J2470; J3370; J7060; J7626; Q0092; Q0163